=== PATIENT | female | born 1940 ===

== ENCOUNTER 2021-11-24 17:35 | Emergency (ER) | payer SELFPAY ==
[~2021-11-24] VITALS: Ht 172.7 cm; Wt 137.0 kg
== END 2021-11-24 19:34 | disposition left against medical advice (07) ==
LOC: ER 17:35
DX: I89.0 Lymphedema, not elsewhere classified (principal); Z53.21 Procedure and treatment not carried out due to patient leaving prior to being seen by health care provider
CPT/HCPCS: 71045